=== PATIENT | female | born 1940 | race African-American/Black ===

== ENCOUNTER → 2016-11-11 | Outpatient (CLI) | payer MEDICARE, MEDICAID ==
[2016-11-11 18:27] LABS: HEMATOCRIT 36.1 % (36.0-47.0); HEMOGLOBIN 11.2 g/dL (12.0-15.5); HGB HCT DIFFERENCE -2.5; MEAN CORPUSCULAR HEMOGLOBIN 24.8 pg (27.0-33.4); MEAN CORPUSCULAR VOLUME 80 fl (80-97); RED BLOOD COUNT 4.52 10^6/uL (3.72-5.28); RED CELL DISTRIBUTION WIDTH 16.4 % (11.5-14.0); WHITE BLOOD COUNT 5.4 10^3/uL (4.0-10.5)
[2016-11-11 18:48] LABS: ANION GAP 14 (5-19); BLOOD UREA NITROGEN 89 mg/dL (7-20); CALCIUM 10.4 mg/dL (8.4-10.2); CARBON DIOXIDE 19 mmol/L (22-30); CHLORIDE 114 mmol/L (98-107); CREATININE RESULT 3.21 mg/dL (0.52-1.25); GLUCOSE 118 mg/dL (75-110); POTASSIUM 5.2 mmol/L (3.6-5.0); SODIUM 146.5 mmol/L (137-145)
== END ==
LOC: OD 17:26
PROVIDERS: ATTEND Internal Medicine Nephrology
DX: I12.9 Hypertensive chronic kidney disease with stage 1 through stage 4 chronic kidney disease, or unspecified chronic kidney disease (principal); N18.4 Chronic kidney disease, stage 4 (severe); E11.9 Type 2 diabetes mellitus without complications; E87.5 Hyperkalemia; D64.9 Anemia, unspecified
CPT/HCPCS: 36415; 80048; 85027

== ENCOUNTER 2017-12-01 14:46 | Inpatient (IN) | payer MEDICARE, MEDICAID ==
--- NOTE | 2017-12-01 15:23 | ER Document Report ---
ED Medical Screen (RME) - General Chief Complaint: Weakness Stated Complaint: BODY WEAKNESS Time Seen by Provider: 12/01/17 15:02 Notes: RME DISCLOSURE I have seen this patient as part of a Rapid Medical Evaluation and, if applicable, placed any initially appropriate orders. The patient will be seen and fully evaluated, including a full history and physical exam, by a provider ( in Main ED or Fast Track) when a room becomes available. 77-year-old female PMH CKD (see his reinforcing bar setter Dr. Daniel) sent here from the nephrology clinic for "I need dialysis". Patient states that they ran blood work and it showed that she would need dialysis. They report that they have had the conversation with Dr. Daniel that she would need dialysis soon however she has not had a fistula or graft placed yet. She reports "all over" body pain as well. TRAVEL OUTSIDE OF THE [place] IN LAST 30 DAYS: No - Related Data Allergies/Adverse Reactions: No Known Allergies Allergy (Unverified 12/01/17 14:49) Past Medical History - Social History Chew tobacco use (# tins/day): No Frequency of alcohol use: None Drug Abuse: None Renal/ Medical History: Denies: Hx Peritoneal Dialysis Physical Exam - Vital signs Vitals: Temp Pulse Resp BP Pulse Ox 97.8 F 69 16 181/69 H 98 12/01/17 14:54 12/01/17 14:54 12/01/17 14:54 12/01/17 14:54 12/01/17 14:54 Course - Vital Signs Vital signs: Temp Pulse Resp BP Pulse Ox 97.8 F 69 16 181/69 H 98 12/01/17 14:54 12/01/17 14:54 12/01/17 14:54 12/01/17 14:54 12/01/17 14:54
[2017-12-01 16:05] LABS: ABSOLUTE EOSINOPHILS # (AUTO) 0.2 10^3/uL (0.0-0.6); ABSOLUTE LYMPHOCYTES (AUTO) 1.2 10^3/uL (0.5-4.7); ABSOLUTE MONOCYTES (AUTO) 0.5 10^3/uL (0.1-1.4); ABSOLUTE NEUT (AUTO) 3.1 10^3/uL (1.7-8.2); BASOPHILS % (AUTO) 0.7 % (0-2); EOSINOPHILS % (AUTO) 3.6 % (0-6); HEMATOCRIT 37.4 % (36.0-47.0); HEMOGLOBIN 11.6 g/dL (12.0-15.5); LYMPHOCYTES % (AUTO) 23.9 % (13-45); MEAN CORPUSCULAR VOLUME 81 fl (80-97); MONOCYTES % (AUTO) 9.8 % (3-13); PLATELET COUNT 132 10^3/uL (150-450); RED BLOOD COUNT 4.63 10^6/uL (3.72-5.28); RED CELL DISTRIBUTION WIDTH 16.6 % (11.5-14.0); TOTAL CELLS COUNTED % (AUTO) 100 %; WHITE BLOOD COUNT 4.9 10^3/uL (4.0-10.5)
[2017-12-01 16:25] LABS: ALANINE AMINOTRANSFERASE 29 U/L (9-52); ALBUMIN 4.1 g/dL (3.5-5.0); ALKALINE PHOSPHATASE 33 U/L (38-126); ANION GAP 11 (5-19); ASPARTATE AMINO TRANSFERASE 28 U/L (14-36); BILIRUBIN,DIRECT 0.4 mg/dL (0.0-0.4); BILIRUBIN,TOTAL 0.4 mg/dL (0.2-1.3); BLOOD UREA NITROGEN 107 mg/dL (7-20); CARBON DIOXIDE 23 mmol/L (22-30); CHLORIDE 108 mmol/L (98-107); GLUCOSE 162 mg/dL (75-110); POTASSIUM 5.5 mmol/L (3.6-5.0); SODIUM 142.3 mmol/L (137-145)
[2017-12-01 16:36] LABS: CALCIUM 12.2 mg/dL (8.4-10.2)
--- NOTE | 2017-12-01 17:15 | ER Document Report ---
ED General - General Chief Complaint: Weakness Stated Complaint: BODY WEAKNESS Time Seen by Provider: 12/01/17 15:02 Mode of Arrival: Ambulatory Information source: Patient, Dr. Office Notes: 77-year-old female chronic kidney disease presents from Dr. Daniel's office with request for admission to have shunt placement tomorrow morning by Dr. Rivera Arzate and to have dialysis performed. Patient admits to generalized body aches and generalized malaise TRAVEL OUTSIDE OF THE [place] IN LAST 30 DAYS: No - HPI Onset: Last week Onset/Duration: Persistent Quality of pain: Achy Severity: Mild Pain Level: 2 Associated symptoms: Body/muscle aches Exacerbated by: Movement Relieved by: Denies Similar symptoms previously: No Recently seen / treated by doctor: Yes - Related Data Allergies/Adverse Reactions: No Known Allergies Allergy (Unverified 12/01/17 14:49) Past Medical History - Social History Smoking Status: Never Smoker Cigarette use (# per day): No Chew tobacco use (# tins/day): No Smoking Education Provided: No Frequency of alcohol use: None Drug Abuse: None Family History: Reviewed & Not Pertinent Patient has suicidal ideation: No Patient has homicidal ideation: No Renal/ Medical History: Denies: Hx Peritoneal Dialysis Review of Systems - Review of Systems Notes: REVIEW OF SYSTEMS: CONSTITUTIONAL : Denies fever, chills, or sweats. Denies recent illness. EENT: Denies eye, ear, throat, or mouth pain or symptoms. Denies nasal or sinus congestion or discharge. Denies throat, tongue, or mouth swelling or difficulty swallowing. CARDIOVASCULAR: Denies chest pain. Denies palpitations or racing or irregular heart beat. Denies ankle edema. RESPIRATORY: Denies cough, cold, or chest congestion. Denies shortness of breath, difficulty breathing, or wheezing. GASTROINTESTINAL: Denies abdominal pain or distention. Denies nausea, vomiting , or diarrhea. Denies blood in vomitus, stools, or per rectum. Denies black, tarry stools. Denies constipation. GENITOURINARY: Denies difficulty urinating, painful urination, burning, frequency, blood in urine, or discharge. FEMALE GENITOURINARY: Denies vaginal bleeding, heavy or abnormal periods, irregular periods. Denies vaginal discharge or odor. MUSCULOSKELETAL: Admits to generalized body aches SKIN: Denies rash, lesions or sores. HEMATOLOGIC : Denies easy bruising or bleeding. LYMPHATIC: Denies swollen, enlarged glands. NEUROLOGICAL: Denies confusion or altered mental status. Denies passing out or loss of consciousness. Denies dizziness or lightheadedness. Denies headache. Denies weakness or paralysis or loss of use of either side. Denies problems with gait or speech. Denies sensory loss, numbness, or tingling. Denies seizures. PSYCHIATRIC: Denies anxiety or stress. Denies depression, suicidal ideation, or homicidal ideation. ALL OTHER SYSTEMS REVIEWED AND NEGATIVE. PHYSICAL EXAMINATION: GENERAL: Well-appearing, well-nourished and in no acute distress. HEAD: Atraumatic, normocephalic. EYES: Pupils equal round and reactive to light, extraocular movements intact, conjunctiva are normal. ENT: Nares patent, oropharynx clear without exudates. Moist mucous membranes. NECK: Normal range of motion, supple without lymphadenopathy LUNGS: Breath sounds clear to auscultation bilaterally and equal. No wheezes rales or rhonchi. HEART: Regular rate and rhythm without murmurs ABDOMEN: Soft, nontender, nondistended abdomen. No guarding, no rebound. No masses appreciated. Female : deferred Musculoskeletal: Normal range of motion, no pitting or edema. No cyanosis. NEUROLOGICAL: Cranial nerves grossly intact. Normal speech, normal gait. Normal sensory, motor exams PSYCH: Normal mood, normal affect. SKIN: Warm, Dry, normal turgor, no rashes or lesions noted. Dictation was performed using [employer] voice recognition software Physical Exam - Vital signs Vitals: Temp Pulse Resp BP Pulse Ox 97.8 F 69 16 181/69 H 98 12/01/17 14:54 12/01/17 14:54 12/01/17 14:54 12/01/17 14:54 12/01/17 14:54 Course - Re-evaluation Re-evalutation: 12/01/17 22:30 Patient overall looks well lab work however does note a creatinine of 5.54 with severe hypercalcemia mild hyperkalemia. Patient initially presented with request for admission however it appears this information was not passed along to the emergency department physician by nephrology, I did call the washer hand on-call who is able to get in touch with the PA who sent the patient in, after discussion with him it appears that he had spoken to someone. Either way patient does have worsening chronic kidney disease and will require dialysis per nephrology, I did admit the patient is a hospitalist service - Vital Signs Vital signs: Temp Pulse Resp BP Pulse Ox 97.8 F 69 12 177/63 H 100 12/01/17 14:54 12/01/17 14:54 12/01/17 19:01 12/01/17 18:00 12/01/17 19:01 - Laboratory Result Diagrams: 12/01/17 15:40 12/01/17 15:40 Laboratory results interpreted by me: 12/01/17 12/01/17 12/01/17 15:15 15:40 15:40 Hgb 11.6 L MCH 25.0 L MCHC 31.0 L RDW 16.6 H Plt Count 132 L Potassium 5.5 H Chloride 108 H BUN 107 H Creatinine 5.54 H Est GFR ( Amer) 9 L Est GFR (Non-Af Amer) 7 L Glucose 162 H Calcium 12.2 H* Alkaline Phosphatase 33 L Urine Protein 100 H Urine Glucose (UA) 150 H Urine Ascorbic Acid 20 H - Diagnostic Test Radiology reviewed: Image reviewed, Reports reviewed - EKG Interpretation by Me EKG shows normal: Sinus rhythm, [place], Intervals, QRS Complexes Critical Care Note - Critical Care Note Total time excluding time spent on procedures (mins): 39 Comments: 39 minutes of critical care time spent in direct contact evaluating and reevaluating the patient, treating symptoms, reviewing labs and studies and speaking with family and consultants excluding any procedures Discharge - Discharge Clinical Impression: Hyperkalemia, diminished renal excretion, Hypercalcemia CKD (chronic kidney disease) Qualifiers: Chronic kidney disease stage: stage 5, not on chronic dialysis Qualified Code(s ): N18.5 - Chronic kidney disease, stage 5 Hypertension Qualifiers: Hypertension type: essential hypertension Qualified Code(s): I10 - Essential ( primary) hypertension Condition: Stable Disposition: ADMITTED INPATIENT Admitting Provider: Hospitalist Unit Admitted: Telemetry
[2017-12-01 17:17] LABS: APPEARANCE,URINE SLIGHTLY-CLOUDY; BILIRUBIN,URINE NEGATIVE (NEGATIVE); COLOR,URINE YELLOW; GLUCOSE, URINE 150 mg/dL (NEGATIVE); KETONES,URINE NEGATIVE (NEGATIVE); LEUKOCYTE ESTERASE,URINE NEGATIVE (NEGATIVE); NITRITE,URINE NEGATIVE (NEGATIVE); PROTEIN,URINE 100 mg/dL (NEGATIVE); URINE SPECIFIC GRAVITY 1.011; UROBILINOGEN,URINE NEGATIVE mg/dL (<2.0)
[2017-12-01] MEDS ORDERED: TUBERCULIN,PURIF.PROT.DERIV. 5 TU/0.1 ML TEST 1 ML VIAL ID ONE (18:00)
--- NOTE | 2017-12-01 18:19 | PDOC H&P ---
History of Present Illness Admission Date/PCP: 12/01/17 17:41 CRISTI LOPEZ NP History of Present Illness: Patient is a 77-year-old -[place] woman with history of hypertension, chronic kidney disease stage V, type 2 diabetes, R eye blidness, status post glaucoma surgery was sent from her primary cable hooker office for dialysis initiation. Otherwise, she reports feeling fine other than her appetite that has not been good the last three weeks. She reports no nausea nor vomiting. She reports making good urine. She denies having any chest pain and no shortness of breath. She does have some leg swelling at times. Hospitalist service consulted for admission and the cable hooker covering has been made aware per ED staff. Past Medical History Cardiac Medical History: Reports: Hypertension Pulmonary Medical History: Reports: None EENT Medical History: Reports: Other - R eye blindness and glaucoma surgery Endocrine Medical History: Reports: Diabetes Mellitus Type 2 Malignancy Medical History: Reports: None Musculoskeltal Medical History: Reports: Arthritis Psychiatric Medical History: Reports: None Past Surgical History Past Surgical History: Reports: Orthopedic Surgery - R shoulder, Other - glaucoma surgery Social History Information Source: Patient Lives with: Family Smoking Status: Never Smoker Hx Prescription Drug Abuse: No Family History Parental Family History Reviewed: Yes - Mother had breast Children Family History Reviewed: Yes Sibling(s) Family History Reviewed.: Yes Medication/Allergy Home Medications: Allopurinol [Zyloprim 100 mg Tablet] 100 mg PO DAILY 12/01/17 Ascorbic Acid [C-500] 500 mg PO DAILY 12/01/17 Atorvastatin Calcium [Lipitor 10 mg Tablet] 10 mg PO QHS 12/01/17 Calcitriol [Rocaltrol 0.5 mcg Capsule] 1 mcg PO DAILY 12/01/17 Clonidine HCl [Catapres 0.1 mg Tablet] 0.1 mg PO Q2PM 12/01/17 Clonidine HCl [Catapres 0.1 mg Tablet] 0.2 mg PO QAM 12/01/17 Clonidine HCl [Catapres 0.1 mg Tablet] 0.2 mg PO QHS 12/01/17 Dorzolamide HCl/Timolol Maleat [Dorzolamide-Timolol Eye Drops] 1 drop OU BID 05/13 Ferrous Sulfate [Feosol 325 mg Tablet] 325 mg PO DAILY 12/01/17 Fluoxetine HCl [Prozac] 10 mg PO DAILY 12/01/17 Furosemide [Lasix 20 mg Tablet] 20 mg PO DAILY 12/01/17 Gabapentin [Neurontin 300 mg Capsule] 900 mg PO Q8 12/01/17 Nifedipine [Nifedipine ER] 60 mg PO DAILY 12/01/17 Allergies/Adverse Reactions: No Known Allergies Allergy (Unverified 12/01/17 14:49) Physical Exam Vital Signs: Temp Pulse Resp BP Pulse Ox 97.8 F 69 16 181/69 H 98 12/01/17 14:54 12/01/17 14:54 12/01/17 14:54 12/01/17 14:54 12/01/17 14:54 General appearance: PRESENT: no acute distress, other - pleasant elderly woman Eye exam: PRESENT: EOMI, other - R eye blindness Mouth exam: PRESENT: moist, neck supple Neck exam: PRESENT: full ROM Respiratory exam: PRESENT: clear to auscultation nicki, symmetrical, unlabored. ABSENT: accessory muscle use Cardiovascular exam: PRESENT: RRR GI/Abdominal exam: PRESENT: normal bowel sounds, soft Rectal exam: PRESENT: deferred Extremities exam: PRESENT: full ROM, pedal edema, +1 edema Neurological exam: PRESENT: alert, oriented to person, oriented to place, oriented to time, oriented to situation, reflexes normal Psychiatric exam: PRESENT: appropriate affect Skin exam: PRESENT: dry, warm Results Laboratory Results: 12/01/17 12/01/17 15:40 15:40 WBC 4.9 Hgb 11.6 L Hct 37.4 MCV 81 MCH 25.0 L MCHC 31.0 L Plt Count 132 L Sodium 142.3 Potassium 5.5 H Chloride 108 H Carbon Dioxide 23 Anion Gap 11 BUN 107 H Creatinine 5.54 H Glucose 162 H Calcium 12.2 H* Assessment & Plan - Diagnosis (1) Chronic kidney disease, stage 5 Is this a current diagnosis for this admission?: Yes Plan: Admitted to medical service for dialysis initiation Nephrology has been consulted Scheduled for access in am (2) Hyperkalemia, diminished renal excretion Is this a current diagnosis for this admission?: Yes Plan: SPS added and follow up Plan for dialysis initiation (3) Hypercalcemia Is this a current diagnosis for this admission?: Yes Plan: Gentle IVF hydration Check PTH and hold calcitriol at this time Renal management (4) Hypertension Qualifiers: Hypertension type: essential hypertension Qualified Code(s): I10 - Essential (primary) hypertension Is this a current diagnosis for this admission?: Yes Plan: Resume home medications once medication is list is verified (5) Type 2 diabetes mellitus Qualifiers: Diabetes mellitus complication status: without complication Is this a current diagnosis for this admission?: Yes Plan: Monitor BS and resume home regimen once verified Add sliding scale (6) Anemia in chronic kidney disease (CKD) Is this a current diagnosis for this admission?: Yes Plan: Monitor Hg and defer to renal (7) Thrombocytopenia Is this a current diagnosis for this admission?: Yes Plan: SCD's and monitor platelet count - Time Time Spent: 50 to 70 Minutes Within: Other - once she is all set for outpatient nephrology
[2017-12-01] MEDS ORDERED: SODIUM POLYSTYRENE SULFONATE 15 GM/60 ML PO ONE ×2 (19:30→21:45)
[2017-12-01] MEDS: HYDRALAZINE HCL INJ/PF 20 MG/1 ML SDV IV PRN (21:37)
--- NOTE | 2017-12-01 21:53 | EKG REPORT ---
SEVERITY:- ABNORMAL ECG - SINUS RHYTHM PROBABLE LEFT VENTRICULAR HYPERTROPHY PROBABLE INFERIOR INFARCT, AGE INDETERMINATE : Confirmed by: Stanton Chapman 01-Dec-2017 21:53:25
[2017-12-01] MEDS ORDERED: HYDRALAZINE HCL INJ/PF 20 MG/1 ML SDV IV PRN (22:33)
[2017-12-01] MEDS ORDERED: DEXTROSE 50%-WATER 25 GM/50 ML DISP.SYRIN IV PRN ×2 (22:35)
[2017-12-01] MEDS ORDERED: GLUCAGON,HUMAN RECOMB 1 MG INJ IM PRN (22:35)
[2017-12-01] MEDS ORDERED: DEXTROSE 40% GEL 15 GM TUBE PO PRN ×2 (22:35)
[2017-12-02] MEDS ORDERED: CLONIDINE HCL 0.1 MG TABLET PO ONE (00:15)
[2017-12-02] MEDS: HYDRALAZINE HCL INJ/PF 20 MG/1 ML SDV IV PRN (04:56)
--- NOTE | 2017-12-02 07:34 | Operative Report ---
Operative Report DATE OF SURGERY: 12/02/17 PREOPERATIVE DIAGNOSIS: End-stage renal disease requiring hemodialysis. POSTOPERATIVE DIAGNOSIS: End-stage renal disease requiring hemodialysis. OPERATION: 1. Ultrasound evaluation of the right femoral vein. 2. Insertion of temporary hemodialysis catheter via real-time access in the right femoral vein. SURGEON: REGINALDO LIU STITCH WHEELER: None ANESTHESIA: Local TISSUE REMOVED OR ALTERED: Not applicable. COMPLICATIONS: None. ESTIMATED BLOOD LOSS: 5 mL. INTRAOPERATIVE FINDINGS: Of a satisfactory right femoral vein to support catheter. The bifurcation of the femoral artery seems a little high axis to the vein had to be a little higher than usual but below the inguinal ligament. Satisfactory procedure with easy egress of blood and ingress of heparinized solution through all 3 ports. The patient has end-stage renal disease, requires dialysis today and therefore hemodialysis catheter was inserted. A more permanent catheter will be planned for Tuesday or Tuesday of next week. PROCEDURE: After obtaining informed consent, the patient was positioned supine at bedside. The[ left groin] and adjacent areas were prepared with chlorhexidine and draped out with sterile linen. After the universal timeout the procedure commenced. A steriley sheathed ultrasound probe was used to evaluate the right femoral vein]. Local anesthesia was infiltrated adjacent to the probe. Access into the left femoral was accomplished using a micropuncture needle followed, by micropuncture wire and then with a micropuncture catheter. This was followed by introduction of a 0.035 guidewire, the skin opening was enlarged slightly, serially larger dilators were now placed followed by introduction of a triaysis catheter. All of these transitions were smooth. Each lumen was aspirated of blood and irrigated with heparinized solution. The catheter was now sutured to the skin using 3-0 nylon. A Bio A patch was now applied, followed by sterile dressings. Caps were placed on the end of the each of the lumens. The procedure concluded. Copies dictated operative report to Dr. Reginaldo Arzate MD.
[2017-12-02] MEDS ORDERED: CLONIDINE HCL 0.1 MG TABLET PO SCH ×2 (08:00→22:00)
[2017-12-02 08:25] LABS: ABSOLUTE BASOPHILS # (AUTO) 0.1 10^3/uL (0.0-0.2); ABSOLUTE EOSINOPHILS # (AUTO) 0.2 10^3/uL (0.0-0.6); ABSOLUTE LYMPHOCYTES (AUTO) 0.8 10^3/uL (0.5-4.7); ABSOLUTE MONOCYTES (AUTO) 0.5 10^3/uL (0.1-1.4); BASOPHILS % (AUTO) 1.5 % (0-2); EOSINOPHILS % (AUTO) 4.4 % (0-6); HEMATOCRIT 34.2 % (36.0-47.0); HEMOGLOBIN 10.6 g/dL (12.0-15.5); LYMPHOCYTES % (AUTO) 17.7 % (13-45); MEAN CORPUSCULAR HEMOGLOBIN 24.6 pg (27.0-33.4); MEAN CORPUSCULAR HGB CONC 31.1 g/dL (32.0-36.0); MEAN CORPUSCULAR VOLUME 79 fl (80-97); MONOCYTES % (AUTO) 11.4 % (3-13); PLATELET COUNT 129 10^3/uL (150-450); RED BLOOD COUNT 4.32 10^6/uL (3.72-5.28); RED CELL DISTRIBUTION WIDTH 16.5 % (11.5-14.0); TOTAL CELLS COUNTED % (AUTO) 100 %; WHITE BLOOD COUNT 4.7 10^3/uL (4.0-10.5)
[2017-12-02 08:53] LABS: ANION GAP 14 (5-19); BLOOD UREA NITROGEN 96 mg/dL (7-20); CALCIUM 10.8 mg/dL (8.4-10.2); CARBON DIOXIDE 20 mmol/L (22-30); CHLORIDE 111 mmol/L (98-107); GLUCOSE 117 mg/dL (75-110); PHOSPHORUS 6.3 mg/dL (2.5-4.5); SODIUM 144.7 mmol/L (137-145)
[2017-12-02 09:05] LABS: POTASSIUM 4.1 mmol/L (3.6-5.0)
[2017-12-02] MEDS: GABAPENTIN 100 MG CAPSULE PO SCH ×2 (09:30→22:13)
[2017-12-02] MEDS: DOCUSATE SODIUM 100 MG CAPSULE PO SCH (09:30)
[2017-12-02] MEDS: FERROUS SULFATE 325 MG TABLET PO SCH (09:31)
[2017-12-02] MEDS: ALLOPURINOL 100 MG TABLET PO SCH (09:31)
[2017-12-02] MEDS: NIFEDIPINE 30 MG TAB.ER.24 PO SCH (09:32)
[2017-12-02] MEDS: CLONIDINE HCL 0.1 MG TABLET PO SCH ×2 (09:33→22:13)
[2017-12-02] MEDS: ASCORBIC ACID 500 MG TABLET PO SCH (09:33)
[2017-12-02] MEDS: DORZOLAMIDE HCL 2%/TIMOLOL MALEAT 0.5% OPH SOLN 10 ML OU SCH ×2 (09:34→19:23)
--- NOTE | 2017-12-02 13:07 | PDOC PROGRESS REPORT ---
Subjective Progress Note for:: 12/02/17 Subjective:: The patient is a 77-year-old female with chronic kidney disease stage V. She has been hospitalized to initiate dialysis. Dr. Arzate has placed a dialysis catheter in the right femoral vein. She has no specific complaints today. When I asked her about the swelling of her right lower extremity she stated that this was chronic. Reason For Visit: CHRONIC KIDNEY DISEASE STAGE 5 Physical Exam Vital Signs: Temp Pulse Resp BP Pulse Ox 98.6 F 87 16 179/69 H 97 12/02/17 12:00 12/02/17 12:00 12/02/17 12:00 12/02/17 12:00 12/02/17 12:00 Intake & Output 12/01/17 12/02/17 12/03/17 06:59 06:59 06:59 Intake Total 50 Balance 50 Weight 71.8 kg Additional comments: The patient appears to be elderly and somewhat frail. She was sleepy but she was able to answer all of my questions appropriately. She appears to be mentating well. Her facial appearance is unremarkable. Her legs are clear to auscultation bilaterally. Cardiac exam demonstrates a regular rate and rhythm when she does have a 2+ out of 6 systolic ejection murmur at the left upper sternal border. The abdomen is soft and flat and minimally distended. She has normal active bowel sounds. She does not have any guarding or rebound noted and there are no hernias or masses present. The right lower extremity demonstrates 2+ edema. The left lower extremity demonstrates only trace edema. Results Laboratory Results: 12/02/17 08:09 12/02/17 08:09 12/02/17 12/02/17 08:09 08:09 WBC 4.7 RBC 4.32 Hgb 10.6 L Hct 34.2 L MCV 79 L MCH 24.6 L MCHC 31.1 L RDW 16.5 H Plt Count 129 L Seg Neutrophils % 65.0 Lymphocytes % 17.7 Monocytes % 11.4 Eosinophils % 4.4 Basophils % 1.5 Absolute Neutrophils 3.0 Absolute Lymphocytes 0.8 Absolute Monocytes 0.5 Absolute Eosinophils 0.2 Absolute Basophils 0.1 Sodium 144.7 Potassium 4.1 D Chloride 111 H Carbon Dioxide 20 L Anion Gap 14 BUN 96 H Creatinine 4.94 H Est GFR ( Amer) 10 L Est GFR (Non-Af Amer) 9 L Glucose 117 H Calcium 10.8 H Phosphorus 6.3 H Assessment & Plan - Diagnosis (1) Anemia in chronic kidney disease (CKD) Is this a current diagnosis for this admission?: Yes Plan: Stable. Transfusion is not indicated. (2) Chronic kidney disease, stage 5 Is this a current diagnosis for this admission?: Yes Plan: Initiate dialysis per nephrology. I greatly appreciate assistance from nephrology. (3) Hypercalcemia Is this a current diagnosis for this admission?: Yes Plan: Improving. (4) Hyperkalemia, diminished renal excretion Is this a current diagnosis for this admission?: Yes Plan: Resolved. (5) Hypertension Qualifiers: Hypertension type: essential hypertension Qualified Code(s): I10 - Essential (primary) hypertension Is this a current diagnosis for this admission?: Yes Plan: This should improve with initiation of dialysis. Otherwise, we will continue medical management. (6) Thrombocytopenia Is this a current diagnosis for this admission?: Yes Plan: Stable (7) Type 2 diabetes mellitus Qualifiers: Diabetes mellitus complication status: without complication Is this a current diagnosis for this admission?: Yes Plan: Continue sliding scale insulin - Time Time Spent with patient: 15-24 minutes - Inpatient Certification Medical Necessity: Failure to Improve With Outpatient Therapy, Significant Comorbidiites Make Outpatient Treatment Too Risky, Need Close Monitoring Due to Risk of Patient Decompensation
[2017-12-02] MEDS ORDERED: HEPARIN SOD (PORCINE) 1,000 UNIT/ML 10 ML VIAL IV PRN (16:59)
--- NOTE | 2017-12-02 17:15 | XCELERA REPORT ---
[address] [address] Lower Extremity Venous Evaluation Name: TAHSIA MESSINA Age: 77 yrs Gender: Female : 1940 Patient Status: Inpatient Patient Location: [address] [place], [place] [address]A Study Date: 12/02/2017 02:03 PM Procedure: Color flow and duplex imaging of the veins of the right lower extremity as well as the left Common Femoral vein. Reason For Study: Swollen right LE Ordering Physician: STEPHANE LABOY Performed By: Gladis Gilbert Right Sided Venous Evaluation Unable to evaluate most proximal due to catheter, bandaging. Normal vessel filling wall to wall, compression and augmentation as well as Colour flow down to the infrageniculate veins. Left Sided Venous Evaluation The left common femoral vein is fully compressible. Spontaneous and phasic flow is present in the left common femoral vein. Interpretation Summary No duplex evidence of DVT or obstruction in the right lower extremity nor in the left Common Femoral vein. : STEPHANE LABOY > Misael Arzate
[2017-12-02] MEDS: ATORVASTATIN CALCIUM 10 MG TABLET PO SCH (22:13)
[2017-12-03 06:19] LABS: ANION GAP 12 (5-19); CALCIUM 10.5 mg/dL (8.4-10.2); CARBON DIOXIDE 24 mmol/L (22-30); CHLORIDE 109 mmol/L (98-107); GLUCOSE 107 mg/dL (75-110); SODIUM 145.4 mmol/L (137-145)
[2017-12-03 06:32] LABS: BLOOD UREA NITROGEN 69 mg/dL (7-20)
[2017-12-03 06:38] LABS: HEPATITS B SURFACE ANTIGEN Negative (Negative)
[2017-12-03] MEDS: CALCITRIOL 0.25 MCG CAPSULE PO SCH (10:24)
[2017-12-03] MEDS: GABAPENTIN 100 MG CAPSULE PO SCH ×2 (10:24→22:03)
[2017-12-03] MEDS: CLONIDINE HCL 0.1 MG TABLET PO SCH ×2 (10:24→22:03)
[2017-12-03] MEDS: ASCORBIC ACID 500 MG TABLET PO SCH (10:24)
[2017-12-03] MEDS: FERROUS SULFATE 325 MG TABLET PO SCH (10:26)
[2017-12-03] MEDS: DOCUSATE SODIUM 100 MG CAPSULE PO SCH (10:26)
[2017-12-03] MEDS: ALLOPURINOL 100 MG TABLET PO SCH (10:26)
[2017-12-03] MEDS: NIFEDIPINE 30 MG TAB.ER.24 PO SCH (10:26)
[2017-12-03] MEDS: DORZOLAMIDE HCL 2%/TIMOLOL MALEAT 0.5% OPH SOLN 10 ML OU SCH ×2 (10:27→17:45)
--- NOTE | 2017-12-03 15:23 | PDOC PROGRESS REPORT ---
Subjective Progress Note for:: 12/03/17 Subjective:: The patient is a 77-year-old female with chronic kidney disease stage V. She has been hospitalized to initiate dialysis. Dr. Arzate has placed a dialysis catheter in the right femoral vein. She has no specific complaints today. Patient had a Doppler of the right lower extremity yesterday. This was a limited study but there is no evidence of DVT. Today, the patient states she is actually feeling much better since her first dialysis session which occurred yesterday. Reason For Visit: CHRONIC KIDNEY DISEASE STAGE 5 Physical Exam Vital Signs: Temp Pulse Resp BP Pulse Ox 98.5 F 54 L 16 165/66 H 98 12/03/17 11:28 12/03/17 14:00 12/03/17 11:28 12/03/17 11:28 12/03/17 11:28 Intake & Output 12/02/17 12/03/17 12/04/17 06:59 06:59 07:59 Intake Total 50 552 Balance 50 552 Weight 71.8 kg 71.8 kg Additional comments: The patient was much more awake today. Her cognition and mentation are normal. Her facial appearance is unremarkable. Her lungs are clear to auscultation bilaterally. Her cardiac exam is regular without murmurs, gallops or rubs. The abdomen is soft and flat. Bowel sounds are present. She has no guarding or rebound noted and there are no hernias or masses present. The right femoral groin site looks good. There is less swelling in the lower extremities but the right leg continues to have more edema than the left leg. The skin is otherwise clean, dry and intact without lesions or rashes. Results Laboratory Results: 12/02/17 08:09 12/03/17 05:12 12/03/17 12/03/17 00:15 05:12 Sodium 145.4 H Potassium 4.0 Chloride 109 H Carbon Dioxide 24 Anion Gap 12 BUN 69 H D Creatinine 4.23 H Est GFR ( Amer) 12 L Est GFR (Non-Af Amer) 10 L Glucose 107 Calcium 10.5 H PTH Intact 62.5 Assessment & Plan - Diagnosis (1) Anemia in chronic kidney disease (CKD) Is this a current diagnosis for this admission?: Yes Plan: Stable. Transfusion is not indicated. (2) Chronic kidney disease, stage 5 Is this a current diagnosis for this admission?: Yes Plan: Initiate dialysis per nephrology. I greatly appreciate assistance from nephrology. (3) Hypercalcemia Is this a current diagnosis for this admission?: Yes Plan: Improving. (4) Hyperkalemia, diminished renal excretion Is this a current diagnosis for this admission?: Yes Plan: Resolved. (5) Hypertension Qualifiers: Hypertension type: essential hypertension Qualified Code(s): I10 - Essential (primary) hypertension Is this a current diagnosis for this admission?: Yes Plan: This should improve with initiation of dialysis. Otherwise, we will continue medical management. (6) Thrombocytopenia Is this a current diagnosis for this admission?: Yes Plan: Stable. Repeat labs tomorrow. (7) Type 2 diabetes mellitus Qualifiers: Diabetes mellitus complication status: without complication Is this a current diagnosis for this admission?: Yes Plan: Continue sliding scale insulin - Time Time Spent with patient: 15-24 minutes - Inpatient Certification Medical Necessity: Significant Comorbidiites Make Outpatient Treatment Too Risky , Need Close Monitoring Due to Risk of Patient Decompensation, Risk of Complication if Not Cared For in Hospital
[2017-12-03 17:03] LABS: HEPATITIS B CORE AB TOT Negative (Negative); HEPATITIS B SURFACE AB QUANT <3.1 mIU/mL (Immunity>9.9)
[2017-12-03] MEDS: ATORVASTATIN CALCIUM 10 MG TABLET PO SCH (22:03)
[2017-12-04 05:38] LABS: ABSOLUTE EOSINOPHILS # (AUTO) 0.2 10^3/uL (0.0-0.6); ABSOLUTE LYMPHOCYTES (AUTO) 1.3 10^3/uL (0.5-4.7); ABSOLUTE MONOCYTES (AUTO) 0.7 10^3/uL (0.1-1.4); ABSOLUTE NEUT (AUTO) 2.6 10^3/uL (1.7-8.2); BASOPHILS % (AUTO) 0.9 % (0-2); HEMATOCRIT 31.8 % (36.0-47.0); HEMOGLOBIN 9.9 g/dL (12.0-15.5); LYMPHOCYTES % (AUTO) 25.8 % (13-45); MEAN CORPUSCULAR HEMOGLOBIN 24.9 pg (27.0-33.4); MEAN CORPUSCULAR HGB CONC 31.2 g/dL (32.0-36.0); MEAN CORPUSCULAR VOLUME 80 fl (80-97); PLATELET COUNT 107 10^3/uL (150-450); RED BLOOD COUNT 3.98 10^6/uL (3.72-5.28); RED CELL DISTRIBUTION WIDTH 16.3 % (11.5-14.0); SEGMENTED NEUTROPHILS % (AUTO) 53.3 % (42-78); TOTAL CELLS COUNTED % (AUTO) 100 %; WHITE BLOOD COUNT 4.9 10^3/uL (4.0-10.5)
[2017-12-04 06:02] LABS: ANION GAP 12 (5-19); BLOOD UREA NITROGEN 77 mg/dL (7-20); CARBON DIOXIDE 25 mmol/L (22-30); CHLORIDE 107 mmol/L (98-107); GLUCOSE 114 mg/dL (75-110); POTASSIUM 4.2 mmol/L (3.6-5.0); SODIUM 144.3 mmol/L (137-145)
[2017-12-04] MEDS: ALLOPURINOL 100 MG TABLET PO SCH (09:34)
[2017-12-04] MEDS: CALCITRIOL 0.25 MCG CAPSULE PO SCH (09:34)
[2017-12-04] MEDS: DOCUSATE SODIUM 100 MG CAPSULE PO SCH (09:35)
[2017-12-04] MEDS: NIFEDIPINE 30 MG TAB.ER.24 PO SCH (09:35)
[2017-12-04] MEDS: FERROUS SULFATE 325 MG TABLET PO SCH (09:35)
[2017-12-04] MEDS: ASCORBIC ACID 500 MG TABLET PO SCH (09:35)
[2017-12-04] MEDS: GABAPENTIN 100 MG CAPSULE PO SCH ×2 (09:35→21:08)
[2017-12-04] MEDS: CLONIDINE HCL 0.1 MG TABLET PO SCH ×2 (09:36→21:08)
[2017-12-04] MEDS: DORZOLAMIDE HCL 2%/TIMOLOL MALEAT 0.5% OPH SOLN 10 ML OU SCH ×2 (09:36→17:29)
[2017-12-04] MEDS: INSULIN REG, HUMAN 100 UNIT/ML 3 ML VIAL (PYX) SUBCUT PRN ×2 (12:08→21:17)
[2017-12-04 12:36] LABS: HEPATITIS C QUANTITATION HCV Not Detected IU/mL (.)
--- NOTE | 2017-12-04 14:07 | PDOC PROGRESS REPORT ---
Subjective Progress Note for:: 12/04/17 Subjective:: The patient is a 77-year-old female with chronic kidney disease stage V. She has been hospitalized to initiate dialysis. Dr. Arzate has placed a dialysis catheter in the right femoral vein. Upon admission the patient had unilateral swelling of the right lower extremity. A Doppler was performed. This was a limited study but was negative for DVT. In general, the patient is feeling much better than when she first came in. Today, her only complaint is that she has pain over her buttock area. Reason For Visit: CHRONIC KIDNEY DISEASE STAGE 5 Physical Exam Vital Signs: Temp Pulse Resp BP Pulse Ox 98.4 F 64 16 161/68 H 97 12/04/17 07:23 12/04/17 07:23 12/04/17 07:23 12/04/17 07:23 12/04/17 07:23 Intake & Output 12/03/17 12/04/17 12/05/17 05:59 06:59 06:59 Intake Total Output Total Balance Weight Additional comments: The patient's cognition is normal. She was somewhat sleepy on Tuesday when I saw her but her mentation has improved dramatically since admission. Her facial appearance is unremarkable. Her lungs do demonstrate a few scattered crackles only in the posterior lung shi. These are at the bases. Her cardiac exam is regular without murmurs, gallops or rubs. The abdomen is soft, flat and benign. Bowel sounds are present. There is no guarding or rebound noted and there are no hernias or masses present. The lower extremities demonstrate less edema. There is still trace to 1+ edema in the right lower extremity. The buttock cleft does show an area where the patient has a probable sebaceous cyst. This is the area that is painful to her. It does not appear to be abscessed or infected. The skin is otherwise unremarkable. Results Laboratory Results: 12/04/17 05:20 12/04/17 05:20 12/04/17 12/04/17 05:20 05:20 WBC 4.9 RBC 3.98 Hgb 9.9 L Hct 31.8 L MCV 80 MCH 24.9 L MCHC 31.2 L RDW 16.3 H Plt Count 107 L Seg Neutrophils % 53.3 Lymphocytes % 25.8 Monocytes % 15.0 H Eosinophils % 5.0 Basophils % 0.9 Absolute Neutrophils 2.6 Absolute Lymphocytes 1.3 Absolute Monocytes 0.7 Absolute Eosinophils 0.2 Absolute Basophils 0.0 Sodium 144.3 Potassium 4.2 Chloride 107 Carbon Dioxide 25 Anion Gap 12 BUN 77 H Creatinine 4.52 H Est GFR ( Amer) 11 L Est GFR (Non-Af Amer) 9 L Glucose 114 H Calcium 11.0 H Magnesium 2.1 Assessment & Plan - Diagnosis (1) Anemia in chronic kidney disease (CKD) Is this a current diagnosis for this admission?: Yes Plan: Stable. Transfusion is not indicated. (2) Chronic kidney disease, stage 5 Is this a current diagnosis for this admission?: Yes Plan: Initiate dialysis per nephrology. I greatly appreciate assistance from nephrology. (3) Hypercalcemia Is this a current diagnosis for this admission?: Yes Plan: Improving. (4) Hyperkalemia, diminished renal excretion Is this a current diagnosis for this admission?: Yes Plan: Resolved. (5) Hypertension Qualifiers: Hypertension type: essential hypertension Qualified Code(s): I10 - Essential (primary) hypertension Is this a current diagnosis for this admission?: Yes Plan: This should improve with initiation of dialysis. Systolic BP is slightly improved since admission. Continue medical management. (6) Thrombocytopenia Is this a current diagnosis for this admission?: Yes Plan: Stable. Repeat labs show a slight trended downward. This is not unusual in the setting of renal failure with initiation of dialysis. This is not worrisome for HRT. In any event patient is using SCDs for prophylaxis. We will continue to trend. (7) Type 2 diabetes mellitus Qualifiers: Diabetes mellitus complication status: without complication Is this a current diagnosis for this admission?: Yes Plan: Continue sliding scale insulin - Time Time Spent with patient: 15-24 minutes - Inpatient Certification Medical Necessity: Need Close Monitoring Due to Risk of Patient Decompensation, Risk of Complication if Not Cared For in Hospital, Risk of Diagnosis Which Will Require Inpatient Eval/Care/Monitoring
[2017-12-04] MEDS: ATORVASTATIN CALCIUM 10 MG TABLET PO SCH (21:08)
[2017-12-05 06:59] LABS: ABSOLUTE BASOPHILS # (AUTO) 0.1 10^3/uL (0.0-0.2); ABSOLUTE EOSINOPHILS # (AUTO) 0.3 10^3/uL (0.0-0.6); ABSOLUTE LYMPHOCYTES (AUTO) 1.2 10^3/uL (0.5-4.7); ABSOLUTE MONOCYTES (AUTO) 0.7 10^3/uL (0.1-1.4); ABSOLUTE NEUT (AUTO) 2.6 10^3/uL (1.7-8.2); BASOPHILS % (AUTO) 1.3 % (0-2); EOSINOPHILS % (AUTO) 5.9 % (0-6); HEMATOCRIT 35.4 % (36.0-47.0); HEMOGLOBIN 11.2 g/dL (12.0-15.5); LYMPHOCYTES % (AUTO) 24.5 % (13-45); MEAN CORPUSCULAR HGB CONC 31.5 g/dL (32.0-36.0); MEAN CORPUSCULAR VOLUME 79 fl (80-97); MONOCYTES % (AUTO) 14.3 % (3-13); PLATELET COUNT 109 10^3/uL (150-450); RED BLOOD COUNT 4.47 10^6/uL (3.72-5.28); RED CELL DISTRIBUTION WIDTH 16.3 % (11.5-14.0); TOTAL CELLS COUNTED % (AUTO) 100 %; WHITE BLOOD COUNT 4.9 10^3/uL (4.0-10.5)
[2017-12-05 07:22] LABS: ANION GAP 13 (5-19); BLOOD UREA NITROGEN 87 mg/dL (7-20); CARBON DIOXIDE 24 mmol/L (22-30); CHLORIDE 106 mmol/L (98-107); GLUCOSE 98 mg/dL (75-110); POTASSIUM 4.6 mmol/L (3.6-5.0)
[2017-12-05] MEDS ORDERED: MIDAZOLAM 2 MG/2 ML INJ ONE (07:48)
[2017-12-05] MEDS ORDERED: LIDOCAINE 0.5% INJ-PF (5 MG/ML) 50 ML SDV ONE (07:48)
[2017-12-05] MEDS ORDERED: BACITRACIN INJ 50,000 UNIT VIAL ONE (07:49)
[2017-12-05] MEDS ORDERED: CEFAZOLIN INJ 1 GM VIAL ONE (07:49)
[2017-12-05] MEDS ORDERED: FENTANYL CITRATE INJ/PF 100 MCG/2 ML AMPUL ONE (07:49)
[2017-12-05] MEDS ORDERED: DIAZEPAM 5 MG TABLET ONE (08:07)
[2017-12-05] MEDS ORDERED: OXYCODONE-ACETAMINOPHEN 5-325 MG TABLET ONE (08:07)
[2017-12-05] MEDS: DOCUSATE SODIUM 100 MG CAPSULE PO SCH (11:06)
[2017-12-05] MEDS: ALLOPURINOL 100 MG TABLET PO SCH (11:07)
[2017-12-05] MEDS: ASCORBIC ACID 500 MG TABLET PO SCH (11:07)
[2017-12-05] MEDS: GABAPENTIN 100 MG CAPSULE PO SCH ×2 (11:07→21:29)
[2017-12-05] MEDS: FERROUS SULFATE 325 MG TABLET PO SCH (11:07)
--- NOTE | 2017-12-05 11:07 | Operative Report ---
Operative Report DATE OF SURGERY: 12/05/17 PREOPERATIVE DIAGNOSIS: End-stage renal disease requiring hemodialysis. POSTOPERATIVE DIAGNOSIS: End-stage renal disease requiring hemodialysis. OPERATION: 1. Ultrasound evaluation of the right internal jugular vein. 2. Insertion of PermCath hemodialysis catheter via real-time access in the right internal jugular vein. 3 angiogram and interpretation. SURGEON: REGINALDO LIU ASSEMBLER MOLDED FRAMES: None ANESTHESIA: Moderate Sedation TISSUE REMOVED OR ALTERED: Not applicable. COMPLICATIONS: None. ESTIMATED BLOOD LOSS: 5 mL. INTRAOPERATIVE FINDINGS: Of a satisfactory right internal jugular vein to support catheter. Estimated to be about 1.5 cm in diameter. Satisfactory procedure with easy egress of blood and ingress of heparinized solution through 2 ports. Angiogram demonstrated smooth flow of contrast through the right atrium ventricle and pulmonary outflow tract. The tip of the catheter well down in the right atrial pool. The patient has end-stage renal disease, requires dialysis indefinitely and therefore a fistula will be planned as an outpatient. PROCEDURE: After obtaining informed consent, the patient was taken to the [Currency Counter] and positioned supine. The [right neck] and chest were prepared with chlorhexidine and draped out with sterile linen. After the " universal timeout", in which it was verified that the patient continued to receive antibiotic, the procedure commenced. A steriley sheathed ultrasound probe was used to evaluate the [ right internal jugular] vein. Local anesthesia was infiltrated adjacent to the probe. Access into the [right internal jugular] vein was obtained using a micropuncture needle, followed by micropuncture wire and then a micropuncture catheter. This was followed by introduction of a 0.035 guidewire the tip of which was placed down into the inferior vena cava . A 23 cm long PermCath was now positioned over the chest and an exit site marked and locally anesthetized , the catheter was placed between the 2 incisions. Proximally, the catheter was now positioned using a peel-away sheath, after dilation. Easy ingress of heparinized solution and egress of blood obtained through both ports. A completion angiogram was done by injecting contrast. The findings were as dictated. The neck incision was now closed using interrupted 3-0 PDS to the subcutaneous tissues, the catheter was anchored at the exit site using 3-0 PDS. A Biopatch device was now placed adjacent to the catheter. Dressings were applied and the procedure concluded. Exposure time: [0.1 minutes]. Exposure: 9.18 per centimeters squared. Contrast amount: [5 mL] of [id number] low osmolality. Copies of the dictated operative report for Dr. Reginaldo Arzate MD.concluded. Copies of the dictated operative report for Dr. Reginaldo Arzate MD.
[2017-12-05] MEDS: FLUOXETINE HCL 20 MG/5 ML UDCUP PO SCH (11:08)
[2017-12-05] MEDS: DORZOLAMIDE HCL 2%/TIMOLOL MALEAT 0.5% OPH SOLN 10 ML OU SCH ×2 (11:08→18:03)
[2017-12-05] MEDS: CALCITRIOL 0.25 MCG CAPSULE PO SCH (11:08)
[2017-12-05] MEDS: NIFEDIPINE 30 MG TAB.ER.24 PO SCH (11:10)
[2017-12-05] MEDS: CLONIDINE HCL 0.1 MG TABLET PO SCH ×2 (11:10→21:29)
--- NOTE | 2017-12-05 13:28 | RADIOLOGY REPORT (SQ) ---
EXAM DESCRIPTION: TUNNELED CENTRAL LINE; GUIDANCE ULTRASOUND COMPLETED DATE/TIME: 12/05/2017 9:11 am; 12/05/2017 9:12 am REASON FOR STUDY: NEED FOR VASCULAR ACCESS COMPARISON: None. FLUOROSCOPY TIME: Recorded as 0.0 minutes. 9 images saved to PACS. TECHNIQUE: Intra-operative images acquired during surgical procedure to evaluate progress. NUMBER OF IMAGES: 9 images. LIMITATIONS: None. FINDINGS: Images of the chest acquired during catheter placement. IMPRESSION: IMAGE(S) OBTAINED DURING PROCEDURE. COMMENT: Quality ID 145: Final reports for procedures using fluoroscopy that document radiation exp osure indices, or exposure time and number of fluorographic images (if radiation exposure indices are not available) Please consult full operative report of the attending physician for description of the procedure. TECHNICAL DOCUMENTATION: JOB ID: [id number] [employer]- All Rights Reserved Reading location - IP/workstation name: [email or web address]
--- NOTE | 2017-12-05 13:28 | RADIOLOGY REPORT (SQ) ---
EXAM DESCRIPTION: TUNNELED CENTRAL LINE; GUIDANCE ULTRASOUND COMPLETED DATE/TIME: 12/05/2017 9:11 am; 12/05/2017 9:12 am REASON FOR STUDY: NEED FOR VASCULAR ACCESS COMPARISON: None. FLUOROSCOPY TIME: Recorded as 0.0 minutes. 9 images saved to PACS. TECHNIQUE: Intra-operative images acquired during surgical procedure to evaluate progress. NUMBER OF IMAGES: 9 images. LIMITATIONS: None. FINDINGS: Images of the chest acquired during catheter placement. IMPRESSION: IMAGE(S) OBTAINED DURING PROCEDURE. COMMENT: Quality ID 145: Final reports for procedures using fluoroscopy that document radiation exp osure indices, or exposure time and number of fluorographic images (if radiation exposure indices are not available) Please consult full operative report of the attending physician for description of the procedure. TECHNICAL DOCUMENTATION: JOB ID: [id number] [employer]- All Rights Reserved Reading location - IP/workstation name: [email or web address]
--- NOTE | 2017-12-05 13:28 | RADIOLOGY REPORT (SQ) ---
EXAM DESCRIPTION: TUNNELED CENTRAL LINE; GUIDANCE ULTRASOUND COMPLETED DATE/TIME: 12/05/2017 9:11 am; 12/05/2017 9:12 am REASON FOR STUDY: NEED FOR VASCULAR ACCESS COMPARISON: None. FLUOROSCOPY TIME: Recorded as 0.0 minutes. 9 images saved to PACS. TECHNIQUE: Intra-operative images acquired during surgical procedure to evaluate progress. NUMBER OF IMAGES: 9 images. LIMITATIONS: None. FINDINGS: Images of the chest acquired during catheter placement. IMPRESSION: IMAGE(S) OBTAINED DURING PROCEDURE. COMMENT: Quality ID 145: Final reports for procedures using fluoroscopy that document radiation exp osure indices, or exposure time and number of fluorographic images (if radiation exposure indices are not available) Please consult full operative report of the attending physician for description of the procedure. TECHNICAL DOCUMENTATION: JOB ID: [id number] [employer]- All Rights Reserved Reading location - IP/workstation name: [email or web address]
[2017-12-05] MEDS ORDERED: HEPARIN SOD (PORCINE) 1,000 UNIT/ML 10 ML VIAL IV PRN (16:41)
--- NOTE | 2017-12-05 17:03 | PDOC PROGRESS REPORT ---
Subjective Progress Note for:: 12/05/17 Subjective:: The patient is a 77-year-old female with chronic kidney disease stage V. She has been hospitalized to initiate dialysis. Upon admission, Dr. Arzate placed a dialysis catheter in the right femoral vein. Upon admission the patient had unilateral swelling of the right lower extremity. A Doppler was performed. This was a limited study but was negative for DVT. In general, the patient is feeling much better than when she first came in. Tuesday, she had pain over the right buttock. She appears to have a sebaceous cyst. She has been receiving warm compresses to this area with relief of symptoms. Today, the patient was taken downstairs and had a permacath placed by Dr. Arzate in the right internal jugular vein. Apparently, this was tolerated well. The patient is currently receiving her second session of dialysis. Reason For Visit: CHRONIC KIDNEY DISEASE STAGE 5 Physical Exam Vital Signs: Temp Pulse Resp BP Pulse Ox 99.0 F 66 16 152/66 H 99 12/05/17 06:24 12/05/17 07:00 12/05/17 06:24 12/05/17 06:24 12/05/17 06:24 Intake & Output 12/04/17 12/05/17 12/06/17 06:59 06:59 06:59 Intake Total 1344 Output Total 1100 Balance 244 Weight 75.6 kg Additional comments: The patient is an extremely pleasant, elderly black female. She is currently receiving dialysis. She does not appear to be in distress. She appears markedly improved when compared to Tuesday. Her lungs are clear to auscultation bilaterally. Her cardiac exam is regular without murmurs, gallops or rubs. The abdomen is minimally protuberant but soft. Bowel sounds are present in the lower quadrants. She does not have guarding or rebound noted and there are no hernias or masses present. The lower extremities demonstrate reduced edema. Results Laboratory Results: 12/05/17 05:52 12/05/17 05:52 12/05/17 12/05/17 05:52 05:52 WBC 4.9 RBC 4.47 Hgb 11.2 L Hct 35.4 L MCV 79 L MCH 25.0 L MCHC 31.5 L RDW 16.3 H Plt Count 109 L Seg Neutrophils % 54.0 Lymphocytes % 24.5 Monocytes % 14.3 H Eosinophils % 5.9 Basophils % 1.3 Absolute Neutrophils 2.6 Absolute Lymphocytes 1.2 Absolute Monocytes 0.7 Absolute Eosinophils 0.3 Absolute Basophils 0.1 Sodium 143.0 Potassium 4.6 Chloride 106 Carbon Dioxide 24 Anion Gap 13 BUN 87 H Creatinine 5.34 H Est GFR ( Amer) 9 L Est GFR (Non-Af Amer) 8 L Glucose 98 Calcium 11.0 H Magnesium 2.1 Impressions: Central Venous Line 12/05/17 00:00 IMPRESSION: IMAGE(S) OBTAINED DURING PROCEDURE. Guidance Fluoroscopy 12/05/17 00:00 IMPRESSION: IMAGE(S) OBTAINED DURING PROCEDURE. Guidance Ultrasound 12/05/17 00:00 IMPRESSION: IMAGE(S) OBTAINED DURING PROCEDURE. Assessment & Plan - Diagnosis (1) Anemia in chronic kidney disease (CKD) Is this a current diagnosis for this admission?: Yes Plan: Stable. Transfusion is not indicated. (2) Chronic kidney disease, stage 5 Is this a current diagnosis for this admission?: Yes Plan: Initiate dialysis per nephrology. I greatly appreciate assistance from nephrology. (3) Hypercalcemia Is this a current diagnosis for this admission?: Yes Plan: Improving. (4) Hyperkalemia, diminished renal excretion Is this a current diagnosis for this admission?: Yes Plan: Resolved. (5) Hypertension Qualifiers: Hypertension type: essential hypertension Qualified Code(s): I10 - Essential (primary) hypertension Is this a current diagnosis for this admission?: Yes Plan: This should improve with initiation of dialysis. Systolic BP is slightly improved since admission. Continue medical management. (6) Thrombocytopenia Is this a current diagnosis for this admission?: Yes Plan: Stable. Repeat labs show a slight trended downward. This is not unusual in the setting of renal failure with initiation of dialysis. This is not worrisome for HRT. In any event patient is using SCDs for prophylaxis. We will continue to trend. (7) Type 2 diabetes mellitus Qualifiers: Diabetes mellitus complication status: without complication Is this a current diagnosis for this admission?: Yes Plan: Continue sliding scale insulin - Time Time Spent with patient: 15-24 minutes - Inpatient Certification Medical Necessity: Risk of Complication if Not Cared For in Hospital
--- NOTE | 2017-12-05 19:00 | PDOC PROGRESS REPORT ---
Subjective Progress Note for:: 12/05/17 Reason For Visit: Seen on HD today. Undergoing HD without any issues and is being supervised to ensure a safe and smooth procedure. She is feeling lots better since initiated on HD last week. She denies any chest pains, dyspnea. Underwent a uneventful right IJ catheter today by Dr Arzate. She still has a temporary femoral catheter which needs to be removed prior to discharge. Labs and meds were reviewed with her.Orders were discussed with the treating HD RN. Physical Exam Vital Signs: Temp Pulse Resp BP Pulse Ox 98.0 F 63 16 199/65 H 100 12/05/17 11:38 12/05/17 14:00 12/05/17 11:38 12/05/17 11:38 12/05/17 11:38 Intake & Output 12/04/17 12/05/17 12/06/17 06:59 06:59 06:59 Intake Total 1344 560 Output Total 1100 Balance 244 560 Weight 75.6 kg General appearance: PRESENT: no acute distress Respiratory exam: PRESENT: clear to auscultation nicki. ABSENT: crackles, rhonchi Cardiovascular exam: PRESENT: +S1, +S2, systolic murmur. ABSENT: rubs - ? GI/Abdominal exam: PRESENT: normal bowel sounds, soft. ABSENT: distended, organomegaly, tenderness Extremities exam: ABSENT: pedal edema Neurological exam: PRESENT: alert, awake, oriented to person, oriented to place Skin exam: ABSENT: cyanosis, pallor, petechiae, rash Results Laboratory Results: 12/05/17 05:52 12/05/17 05:52 12/05/17 12/05/17 05:52 05:52 WBC 4.9 RBC 4.47 Hgb 11.2 L Hct 35.4 L MCV 79 L MCH 25.0 L MCHC 31.5 L RDW 16.3 H Plt Count 109 L Seg Neutrophils % 54.0 Lymphocytes % 24.5 Monocytes % 14.3 H Eosinophils % 5.9 Basophils % 1.3 Absolute Neutrophils 2.6 Absolute Lymphocytes 1.2 Absolute Monocytes 0.7 Absolute Eosinophils 0.3 Absolute Basophils 0.1 Sodium 143.0 Potassium 4.6 Chloride 106 Carbon Dioxide 24 Anion Gap 13 BUN 87 H Creatinine 5.34 H Est GFR ( Amer) 9 L Est GFR (Non-Af Amer) 8 L Glucose 98 Calcium 11.0 H Magnesium 2.1 Impressions: Central Venous Line 12/05/17 00:00 IMPRESSION: IMAGE(S) OBTAINED DURING PROCEDURE. Guidance Fluoroscopy 12/05/17 00:00 IMPRESSION: IMAGE(S) OBTAINED DURING PROCEDURE. Guidance Ultrasound 12/05/17 00:00 IMPRESSION: IMAGE(S) OBTAINED DURING PROCEDURE. Assessment & Plan - Diagnosis (1) ESRD (end stage renal disease) Plan: This is her second HD. She is feeling a whole lot better since initiation of HD. Its being supervised to ensure a safe and smooth procedure. VS are stable. She could be discharged home and to OP dialysis at [facility] after estate planner has co ordinated care with them. (2) Chronic kidney disease, stage 5 Is this a current diagnosis for this admission?: Yes (3) Anemia in chronic kidney disease (CKD) Is this a current diagnosis for this admission?: Yes Plan: Stable. No indication for EPO. (4) Hypertension Qualifiers: Hypertension type: essential hypertension Qualified Code(s): I10 - Essential (primary) hypertension Is this a current diagnosis for this admission?: Yes Plan: Uncontrolled .Will adjust/titrate meds. (5) Type 2 diabetes mellitus Qualifiers: Diabetes mellitus complication status: without complication Is this a current diagnosis for this admission?: Yes Plan: Adv tight control. (6) Renal osteodystrophy Plan: On calcitriol. (7) Uremia Plan: Resolved. A suspicious cardiac rub was not heard .
[2017-12-05] MEDS: ATORVASTATIN CALCIUM 10 MG TABLET PO SCH (21:29)
[2017-12-05] MEDS: INSULIN REG, HUMAN 100 UNIT/ML 3 ML VIAL (PYX) SUBCUT PRN (21:34)
[2017-12-06 05:11] LABS: ABSOLUTE BASOPHILS # (AUTO) 0.1 10^3/uL (0.0-0.2); ABSOLUTE EOSINOPHILS # (AUTO) 0.2 10^3/uL (0.0-0.6); ABSOLUTE MONOCYTES (AUTO) 0.7 10^3/uL (0.1-1.4); ABSOLUTE NEUT (AUTO) 3.5 10^3/uL (1.7-8.2); BASOPHILS % (AUTO) 1.1 % (0-2); EOSINOPHILS % (AUTO) 4.3 % (0-6); HEMATOCRIT 33.8 % (36.0-47.0); HEMOGLOBIN 10.6 g/dL (12.0-15.5); LYMPHOCYTES % (AUTO) 18.2 % (13-45); MEAN CORPUSCULAR HEMOGLOBIN 24.8 pg (27.0-33.4); MEAN CORPUSCULAR HGB CONC 31.4 g/dL (32.0-36.0); MEAN CORPUSCULAR VOLUME 79 fl (80-97); MONOCYTES % (AUTO) 12.4 % (3-13); PLATELET COUNT 102 10^3/uL (150-450); RED BLOOD COUNT 4.27 10^6/uL (3.72-5.28); RED CELL DISTRIBUTION WIDTH 16.4 % (11.5-14.0); TOTAL CELLS COUNTED % (AUTO) 100 %; WHITE BLOOD COUNT 5.4 10^3/uL (4.0-10.5)
[2017-12-06 05:31] LABS: ANION GAP 11 (5-19); BLOOD UREA NITROGEN 68 mg/dL (7-20); CALCIUM 10.2 mg/dL (8.4-10.2); CARBON DIOXIDE 25 mmol/L (22-30); CHLORIDE 104 mmol/L (98-107); GLUCOSE 117 mg/dL (75-110); POTASSIUM 4.4 mmol/L (3.6-5.0); SODIUM 140.2 mmol/L (137-145)
[2017-12-06] MEDS: ASCORBIC ACID 500 MG TABLET PO SCH (09:52)
[2017-12-06] MEDS: CLONIDINE HCL 0.1 MG TABLET PO SCH (09:52)
[2017-12-06] MEDS: DOCUSATE SODIUM 100 MG CAPSULE PO SCH (09:52)
[2017-12-06] MEDS: FERROUS SULFATE 325 MG TABLET PO SCH (09:53)
[2017-12-06] MEDS: GABAPENTIN 100 MG CAPSULE PO SCH (09:53)
[2017-12-06] MEDS: ALLOPURINOL 100 MG TABLET PO SCH (09:54)
[2017-12-06] MEDS: NIFEDIPINE 30 MG TAB.ER.24 PO SCH (09:54)
[2017-12-06] MEDS: FLUOXETINE HCL 20 MG/5 ML UDCUP PO SCH (09:54)
[2017-12-06] MEDS: CALCITRIOL 0.25 MCG CAPSULE PO SCH (09:55)
[2017-12-06] MEDS: DORZOLAMIDE HCL 2%/TIMOLOL MALEAT 0.5% OPH SOLN 10 ML OU SCH (09:56)
[2017-12-06] MEDS: INSULIN REG, HUMAN 100 UNIT/ML 3 ML VIAL (PYX) SUBCUT PRN ×2 (11:51→16:38)
--- NOTE | 2017-12-06 15:00 | RADIOLOGY REPORT (SQ) ---
EXAM DESCRIPTION: CHEST PA/LAT COMPLETED DATE/TIME: 12/06/2017 2:47 pm REASON FOR STUDY: eval for tuberculosis COMPARISON: None. NUMBER OF VIEWS: Two view. TECHNIQUE: Frontal and lateral radiographic views of the chest acquired. LIMITATIONS: None. FINDINGS: LUNGS AND PLEURA: No opacities, masses or pneumothorax. No pleural effusion. MEDIASTINUM AND HILAR STRUCTURES: No masses or contour abnormalities. HEART AND VASCULATURE: Heart normal size. No evidence for failure. BONY STRUCTURES: No acute findings. HARDWARE: PermCath on the right with the tip projected over the right atrium. OTHER: No other significant finding. IMPRESSION: No significant pulmonary pathology. No radiographic evidence of pulmonary tuberculosis is clinically questioned. PermCath on the right. TECHNICAL DOCUMENTATION: JOB ID: [id number] [employer]- All Rights Reserved Reading location - IP/workstation name: [email or web address]
--- NOTE | 2017-12-06 16:07 | PDOC PROGRESS REPORT ---
Subjective Progress Note for:: 12/06/17 Subjective:: Patient was sitting up in her chair comfortably. She says that she is feeling a little better since starting dialysis. At the time she denied chest pain, SOB, fever, chills, nausea or vomiting. Reason For Visit: CHRONIC KIDNEY DISEASE STAGE 5 Physical Exam Vital Signs: Temp Pulse Resp BP Pulse Ox 98.3 F 64 14 151/62 H 98 12/06/17 11:30 12/06/17 14:00 12/06/17 11:30 12/06/17 11:30 12/06/17 11:30 Intake & Output 12/05/17 12/06/17 12/07/17 06:59 06:59 06:59 Intake Total 1344 1360 118 Output Total 1100 250 Balance 244 1360 -132 Weight 75.6 kg 74.6 kg General appearance: PRESENT: no acute distress, well-developed, well-nourished Mouth exam: PRESENT: moist, neck supple Neck exam: PRESENT: full ROM. ABSENT: JVD Respiratory exam: PRESENT: clear to auscultation nicki. ABSENT: accessory muscle use, crackles, rales, rhonchi, wheezes Cardiovascular exam: PRESENT: +S1, +S2, systolic murmur. ABSENT: rubs GI/Abdominal exam: PRESENT: normal bowel sounds, soft. ABSENT: distended, organomegaly, tenderness Extremities exam: ABSENT: pedal edema, tenderness Musculoskeletal exam: PRESENT: normal inspection. ABSENT: tenderness Neurological exam: PRESENT: alert, awake, oriented to person, oriented to place , oriented to time, oriented to situation Skin exam: PRESENT: dry, intact, warm Results Laboratory Results: 12/06/17 04:27 12/06/17 04:27 12/06/17 12/06/17 04:27 04:27 WBC 5.4 RBC 4.27 Hgb 10.6 L Hct 33.8 L MCV 79 L MCH 24.8 L MCHC 31.4 L RDW 16.4 H Plt Count 102 L Seg Neutrophils % 64.0 Lymphocytes % 18.2 Monocytes % 12.4 Eosinophils % 4.3 Basophils % 1.1 Absolute Neutrophils 3.5 Absolute Lymphocytes 1.0 Absolute Monocytes 0.7 Absolute Eosinophils 0.2 Absolute Basophils 0.1 Sodium 140.2 Potassium 4.4 Chloride 104 Carbon Dioxide 25 Anion Gap 11 BUN 68 H Creatinine 3.99 H Est GFR ( Amer) 13 L Est GFR (Non-Af Amer) 11 L Glucose 117 H Calcium 10.2 Magnesium 2.0 Impressions: Central Venous Line 12/05/17 00:00 IMPRESSION: IMAGE(S) OBTAINED DURING PROCEDURE. Guidance Fluoroscopy 12/05/17 00:00 IMPRESSION: IMAGE(S) OBTAINED DURING PROCEDURE. Guidance Ultrasound 12/05/17 00:00 IMPRESSION: IMAGE(S) OBTAINED DURING PROCEDURE. Chest X-Ray 12/06/17 00:00 IMPRESSION: No significant pulmonary pathology. No radiographic evidence of pulmonary tuberculosis is clinically questioned. PermCath on the right. Assessment & Plan - Diagnosis (1) ESRD (end stage renal disease) Plan: patient looks to have stablized and can continue dialysis as outpatient. consultuing discharge services to coordinate dialysis with [facility] dialysis unit. (2) Uremia Plan: improving, no more asterixis or pericardial friction rub was noted. Continue with dialysis. (3) Anemia in chronic kidney disease (CKD) Is this a current diagnosis for this admission?: Yes Plan: will look to continue with procrit as outpatient (4) Hypercalcemia Is this a current diagnosis for this admission?: Yes Plan: currently stable (5) Hypertension Qualifiers: Hypertension type: essential hypertension Qualified Code(s): I10 - Essential (primary) hypertension Is this a current diagnosis for this admission?: Yes Plan: varying, will look to adjust medications and monitor as outpatient (6) Renal osteodystrophy Plan: continue on calcitriol (7) Type 2 diabetes mellitus Qualifiers: Diabetes mellitus complication status: without complication Is this a current diagnosis for this admission?: Yes
[2017-12-06 18:03] VITALS: BP 152/66
--- NOTE | 2017-12-07 06:01 | PDOC DISCHARGE SUMMARY ---
General - Admit/Disc Date/PCP Admission Date/Primary Care Provider: 12/01/17 17:41 CRISTI LOPEZ NP Discharge Date: 12/06/17 - Discharge Diagnosis (1) ESRD (end stage renal disease) on dialysis Is this a current diagnosis for this admission?: Yes (2) Anemia in chronic kidney disease (CKD) Is this a current diagnosis for this admission?: Yes (3) Hyperkalemia, diminished renal excretion Is this a current diagnosis for this admission?: Yes (4) Hypertension Is this a current diagnosis for this admission?: Yes (5) Renal osteodystrophy Is this a current diagnosis for this admission?: Yes (6) Thrombocytopenia Is this a current diagnosis for this admission?: Yes (7) Type 2 diabetes mellitus Is this a current diagnosis for this admission?: Yes - Additional Information Discharge Diet: Other (Comments) - Renal Discharge Activity: Activity As Tolerated Home Medications: Allopurinol [Zyloprim 100 mg Tablet] 100 mg PO DAILY 12/01/17 Ascorbic Acid [C-500] 500 mg PO DAILY 12/01/17 Atorvastatin Calcium [Lipitor 10 mg Tablet] 10 mg PO QHS 12/01/17 Calcitriol [Rocaltrol 0.5 mcg Capsule] 1 mcg PO DAILY 12/01/17 Clonidine HCl [Catapres 0.1 mg Tablet] 0.1 mg PO Q2PM 12/01/17 Clonidine HCl [Catapres 0.1 mg Tablet] 0.2 mg PO QAM 12/01/17 Clonidine HCl [Catapres 0.1 mg Tablet] 0.2 mg PO QHS 12/01/17 Dorzolamide HCl/Timolol Maleat [Dorzolamide-Timolol Eye Drops] 1 drop OU BID 05/13 Ferrous Sulfate [Feosol 325 mg Tablet] 325 mg PO DAILY 12/01/17 Fluoxetine HCl [Prozac] 10 mg PO DAILY 12/01/17 Furosemide [Lasix 20 mg Tablet] 20 mg PO DAILY 12/01/17 Nifedipine [Nifedipine ER] 60 mg PO DAILY 12/01/17 Gabapentin [Neurontin 300 mg Capsule] 300 mg PO QHS #0 12/06/17 History of Present Illness History of Present Illness: TASHIA MESSINA is a 77 year old female with history of hypertension, chronic kidney disease stage V, type 2 diabetes, R eye blidness, status post glaucoma surgery was sent from her primary couples therapist office for dialysis initiation. She reported feeling fine other than her appetite that had not been good the last three weeks. She reported no nausea nor vomiting. She reported making good urine. She denied having any chest pain and no shortness of breath. She did have some leg swelling at times. Hospitalist service was consulted for admission and the couples therapist covering was been made aware per ED staff. Hospital Course Hospital Course: The patient is a 77-year-old female with chronic kidney disease stage V. She was hospitalized to initiate dialysis. On December 02, Dr. Arzate placed a dialysis catheter in the right femoral vein. On December 05 there was placed in a dialysis cath in the right internal jugular vein. Patient underwent two dialysis treatment during her hosptila stay. She tolerated procedures well and arrangements were made for patient to undergo dialysis close to home. Chest x- ray was order to rule out TB prior to discharge as a requirement for dialysis. Chest x-ray was negative for tuberculosis. Upon admission the patient had unilateral swelling of the right lower extremity. A Doppler was performed. This was a limited study but was negative for DVT. In general, the patient was feeling much better than when she first came in. Since patient had achieved maximum benefit of hospitalization stay prompted to discharge under stable condition. Physical Exam Vital Signs: Temp Pulse Resp BP Pulse Ox 98.3 F 73 14 151/62 H 98 12/06/17 11:30 12/06/17 11:30 12/06/17 11:30 12/06/17 11:30 12/06/17 11:30 Intake & Output 12/05/17 12/06/17 12/07/17 06:59 06:59 06:59 Intake Total 1344 1360 Output Total 1100 Balance 244 1360 Weight 75.6 kg 74.6 kg General appearance: PRESENT: no acute distress, cooperative, obese Head exam: PRESENT: atraumatic, normocephalic Eye exam: PRESENT: conjunctiva pink, EOMI, PERRLA Ear exam: PRESENT: normal external ear exam Mouth exam: PRESENT: moist Neck exam: PRESENT: full ROM. ABSENT: JVD, lymphadenopathy, tenderness, thyromegaly Respiratory exam: PRESENT: clear to auscultation nicki. ABSENT: tachypnea, unlabored Cardiovascular exam: PRESENT: RRR. ABSENT: diastolic murmur, gallop, systolic murmur Vascular exam: PRESENT: normal capillary refill GI/Abdominal exam: PRESENT: normal bowel sounds, soft. ABSENT: tenderness Extremities exam: PRESENT: full ROM. ABSENT: clubbing, pedal edema Musculoskeletal exam: PRESENT: ambulatory Neurological exam: PRESENT: alert, oriented to person, oriented to place, oriented to time, oriented to situation, CN II-XII grossly intact Psychiatric exam: PRESENT: appropriate affect, normal mood Skin exam: PRESENT: intact, normal color Results Laboratory Results: 12/06/17 04:27 12/06/17 04:27 12/06/17 12/06/17 04:27 04:27 WBC 5.4 RBC 4.27 Hgb 10.6 L Hct 33.8 L MCV 79 L MCH 24.8 L MCHC 31.4 L RDW 16.4 H Plt Count 102 L Seg Neutrophils % 64.0 Lymphocytes % 18.2 Monocytes % 12.4 Eosinophils % 4.3 Basophils % 1.1 Absolute Neutrophils 3.5 Absolute Lymphocytes 1.0 Absolute Monocytes 0.7 Absolute Eosinophils 0.2 Absolute Basophils 0.1 Sodium 140.2 Potassium 4.4 Chloride 104 Carbon Dioxide 25 Anion Gap 11 BUN 68 H Creatinine 3.99 H Est GFR ( Amer) 13 L Est GFR (Non-Af Amer) 11 L Glucose 117 H Calcium 10.2 Magnesium 2.0 Impressions: Central Venous Line 12/05/17 00:00 IMPRESSION: IMAGE(S) OBTAINED DURING PROCEDURE. Guidance Fluoroscopy 12/05/17 00:00 IMPRESSION: IMAGE(S) OBTAINED DURING PROCEDURE. Guidance Ultrasound 12/05/17 00:00 IMPRESSION: IMAGE(S) OBTAINED DURING PROCEDURE. Qualifiers - * PATEINT BEING DISCHARGED WITH ANY OF THE FOLLOWING DIAGNOSIS?: No Plan Discharge Plan: Discharge home Time Spent: Less than 30 Minutes
--- NOTE | 2017-12-08 14:07 | PDOC CONSULTATION ---
Consultation Consult Date: 12/02/17 Consult reason:: Hemodialysis in uremia History of Present Illness Admission Date/PCP: 12/01/17 17:41 CRISTI LOPEZ NP History of Present Illness: Patient is a 77-year-old -[place] woman with history of long standing complicated Diabetes,hypertension, chronic kidney disease stage 5, type , was admitted yesterday from office with features indicative of uremia for dialysis initiation. She has noticed a declining appetite over the last few weeks. She reports no nausea nor vomiting. She reports making good urine. She denies having any chest pain and no shortness of breath. She does have some leg swelling at times. Labs and meds were reviewed with patient. She is currently being seen on dialysis.VS are stable.Orders were discussed with treating correctional program officer. Past Medical History Cardiac Medical History: Reports: Hypertension-primary Pulmonary Medical History: Reports: None EENT Medical History: Reports: Other - R eye blindness and glaucoma surgery Endocrine Medical History: Reports: Diabetes Mellitus Type 2 Renal/ Medical History: Reports: Chronic Kidney Disease Stage V, Secondary Hyperparathyroidism Malignancy Medical History: Reports: None Musculoskeltal Medical History: Reports: Arthritis Psychiatric Medical History: Reports: None Hematology Medical History: Reports Anemia of Chronic Kidney Disease Past Surgical History Past Surgical History: Reports: Orthopedic Surgery - R shoulder, Other - glaucoma surgery Social History Lives with: Family Smoking Status: Never Smoker Hx Recreational Drug Use: No Hx Prescription Drug Abuse: No Family History Parental Family History Reviewed: Yes Children Family History Reviewed: No Sibling(s) Family History Reviewed.: Yes Medication/Allergy Home Medications: Allopurinol [Zyloprim 100 mg Tablet] 100 mg PO DAILY 12/01/17 Ascorbic Acid [C-500] 500 mg PO DAILY 12/01/17 Atorvastatin Calcium [Lipitor 10 mg Tablet] 10 mg PO QHS 12/01/17 Calcitriol [Rocaltrol 0.5 mcg Capsule] 1 mcg PO DAILY 12/01/17 Clonidine HCl [Catapres 0.1 mg Tablet] 0.1 mg PO Q2PM 12/01/17 Clonidine HCl [Catapres 0.1 mg Tablet] 0.2 mg PO QAM 12/01/17 Clonidine HCl [Catapres 0.1 mg Tablet] 0.2 mg PO QHS 12/01/17 Dorzolamide HCl/Timolol Maleat [Dorzolamide-Timolol Eye Drops] 1 drop OU BID 05/13 Ferrous Sulfate [Feosol 325 mg Tablet] 325 mg PO DAILY 12/01/17 Fluoxetine HCl [Prozac] 10 mg PO DAILY 12/01/17 Furosemide [Lasix 20 mg Tablet] 20 mg PO DAILY 12/01/17 Nifedipine [Nifedipine ER] 60 mg PO DAILY 12/01/17 Gabapentin [Neurontin 300 mg Capsule] 300 mg PO QHS #0 12/06/17 Allergies/Adverse Reactions: No Known Allergies Allergy (Unverified 12/01/17 14:49) Review of Systems Constitutional: PRESENT: fatigue, weakness. ABSENT: fever(s), headache(s), night sweats Cardiovascular: ABSENT: dyspnea on exertion, edema, orthropnea, palpitations Respiratory: ABSENT: cough Gastrointestinal: ABSENT: abdominal pain, bloating, diarrhea, dysphagia, nausea , vomiting Integumentary: ABSENT: pruritus Neurological: PRESENT: memory loss, weakness. ABSENT: abnormal movements, abnormal speech, focal weakness Hematologic/Lymphatic: ABSENT: easy bruising, lymphadenopathy Physical Exam Vital Signs: Temp Pulse Resp BP Pulse Ox 98.6 F 87 16 179/69 H 97 12/02/17 12:00 12/02/17 12:00 12/02/17 12:00 12/02/17 12:00 12/02/17 12:00 Intake & Output 12/01/17 12/02/17 12/03/17 06:59 06:59 06:59 Intake Total 50 Balance 50 Weight 71.8 kg General appearance: PRESENT: no acute distress Ear exam: PRESENT: normal external ear exam Mouth exam: PRESENT: moist. ABSENT: neck supple Neck exam: ABSENT: lymphadenopathy, meningismus, tenderness, thyromegaly, tracheal deviation Respiratory exam: PRESENT: clear to auscultation nicki. ABSENT: crackles, rhonchi Cardiovascular exam: PRESENT: rubs - ?, +S1, +S2, systolic murmur GI/Abdominal exam: PRESENT: normal bowel sounds, soft. ABSENT: distended, organomegaly, tenderness Extremities exam: ABSENT: pedal edema Neurological exam: PRESENT: awake - but looks rather tired and lethargic., oriented to person, oriented to place, other - Asterix[employer]+.No myoclonus. Psychiatric exam: PRESENT: appropriate affect Skin exam: PRESENT: normal color. ABSENT: cyanosis, mottled Results Laboratory Results: 12/02/17 08:09 12/02/17 08:09 12/02/17 12/02/17 08:09 08:09 WBC 4.7 RBC 4.32 Hgb 10.6 L Hct 34.2 L MCV 79 L MCH 24.6 L MCHC 31.1 L RDW 16.5 H Plt Count 129 L Seg Neutrophils % 65.0 Lymphocytes % 17.7 Monocytes % 11.4 Eosinophils % 4.4 Basophils % 1.5 Absolute Neutrophils 3.0 Absolute Lymphocytes 0.8 Absolute Monocytes 0.5 Absolute Eosinophils 0.2 Absolute Basophils 0.1 Sodium 144.7 Potassium 4.1 D Chloride 111 H Carbon Dioxide 20 L Anion Gap 14 BUN 96 H Creatinine 4.94 H Est GFR ( Amer) 10 L Est GFR (Non-Af Amer) 9 L Glucose 117 H Calcium 10.8 H Phosphorus 6.3 H Assessment & Plan - Diagnosis (1) Chronic kidney disease, stage 5 Is this a current diagnosis for this admission?: Yes Plan: She has developed uremia. She is feeling weak and fatigued. She is currently seen on HD after orders placed earlier.Orders are discussed with treating RN. VS are stable .HD is being supervised to ensure a safe and smooth procedure. Plan no UF. She has a temporary femoral catheter and a IJ catheter will be placed soon by Dr Arzate hopefully before her next HD on Tuesday. (2) Anemia in chronic kidney disease (CKD) Is this a current diagnosis for this admission?: Yes Plan: Plan to initiate epo. (3) Hypertension Qualifiers: Hypertension type: essential hypertension Qualified Code(s): I10 - Essential (primary) hypertension Is this a current diagnosis for this admission?: Yes Plan: Uncontrolled .Needs titration of anti hypertensives after seeing response to HD. (4) Type 2 diabetes mellitus Qualifiers: Diabetes mellitus complication status: without complication Is this a current diagnosis for this admission?: Yes Plan: Adv tight control. (5) Renal osteodystrophy Plan: Start calcitriol. (6) Uremia Plan: from CKD 5.Being initiated on HD and monitor response.
== END 2017-12-06 17:56 | disposition home or self-care (01) | DRG 682 ==
LOC: ER 14:46 → EH 17:41 → 4W 20:23
PROVIDERS: ADMIT Emergency Medicine; ATTEND Emergency Medicine
PROC: 5A1D70Z Performance of Urinary Filtration, Intermittent, Less than 6 Hours Per Day (ICD-10-PCS; principal; 2017-12-02)
PROC: 06HM33Z Insertion of Infusion Device into Right Femoral Vein, Percutaneous Approach (ICD-10-PCS; 2017-12-02)
PROC: B54BZZA Ultrasonography of Right Lower Extremity Veins, Guidance (ICD-10-PCS; 2017-12-02)
PROC: 06H033Z Insertion of Infusion Device into Inferior Vena Cava, Percutaneous Approach (ICD-10-PCS; 2017-12-05)
PROC: B549ZZA Ultrasonography of Inferior Vena Cava, Guidance (ICD-10-PCS; 2017-12-05)
PROC: 5A1D70Z Performance of Urinary Filtration, Intermittent, Less than 6 Hours Per Day (ICD-10-PCS; 2017-12-05)
DX: I12.0 Hypertensive chronic kidney disease with stage 5 chronic kidney disease or end stage renal disease (principal); N18.6 End stage renal disease; N25.81 Secondary hyperparathyroidism of renal origin; E11.22 Type 2 diabetes mellitus with diabetic chronic kidney disease; Z99.2 Dependence on renal dialysis; D63.1 Anemia in chronic kidney disease; E87.5 Hyperkalemia; N25.0 Renal osteodystrophy; D69.6 Thrombocytopenia, unspecified; H54.61 Unqualified visual loss, right eye, normal vision left eye; E83.52 Hypercalcemia; M19.90 Unspecified osteoarthritis, unspecified site; Z79.899 Other long term (current) drug therapy
CPT/HCPCS: 36415; 36556; 36558; 71046; 76937; 77001; 80048; 80053; 81001; 82397; 82962; 83735; 83970; 84100; 85025; 86317; 86704; 87340; 87522; 93005; 93010; 93971; 99291; C1713; C1752; J0360; J0690; J1644; J1815; J2250; J3010; J3490; Q9967